=== PATIENT | female | born 2000 | race Caucasian/White ===

== ENCOUNTER 2024-09-22 13:18 | Observation (INO) | payer OTHER, SELFPAY ==
[2024-09-22] VITALS (18 sets, daily range): BP systolic 106–126; BP diastolic 56–80; PULSE 68–96; RESP 14–20; TEMP 36.8–37.1; O2SAT 80–100; BMI 23.6; BMI 23.7
[2024-09-22 14:05] LABS: Strep A DNA Probe* NOT DETECTED (Not Detectd)
[2024-09-22 14:19] LABS: PCR FLU A Negative PCR FLU A (Negative); PCR FLU B Negative PCR FLU B (Negative); PCR RSV Negative PCR RSV (Negative); SARS PCR* Negative SARS-CoV-2 (Negative)
--- NOTE | 2024-09-22 14:31 | ED_ITS ---
HPI - General Adult General Time Seen by Provider: 14:31 Date Seen: 09/22/24 Chief complaint: Sore Throat Stated complaint: Sore throat, headache Time Seen by Provider: 09/22/24 13:42 Source: patient and RN notes reviewed Mode of arrival: ambulatory Limitations: no limitations History of Present Illness HPI narrative: Even very pleasant 23-year-old trans female to male, otherwise healthy who comes to the emergency room with mom for evaluation regarding fever headache and right-sided sore throat. Chandan initially had sore throat on the left side last weekend or 1 week ago. At that time no obvious source of infection was noted as strep was negative as was urinalysis and triple swab. Treated with doxycycline for 7 days for non strep bacterial pharyngitis. Chandan and mom notes that things actually improved and last dose of antibiotic was on MondaySeptember 20. Yesterday symptoms return but this time on the right side. Since that time he then also complains of a right-sided headache neck pain. Does endorse posterior cervical lymphadenopathy. No vomiting. Did have vomiting and diarrhea last weekend. Fever did return today difficulty with swallowing because of pain on the right side. No unusual cough, dysuria. Triple swab and strep taken in triage. Related Data Home Medications ?Medication ?Instructions ?Recorded ?Confirmed bupropion HCl 100 mg tablet 120 mg PO BID 09/14/24 09/22/24 citalopram 40 mg tablet 40 mg PO QDAY 09/14/24 09/22/24 lisdexamfetamine 40 mg capsule 40 mg PO DAILY 09/14/24 09/22/24 (Vyvanse) Allergies Allergy/AdvReac Type Severity Reaction Status Date / Time mint Allergy Intermediate Verified 09/22/24 14:56 latex Allergy Mild Verified 09/22/24 14:56 Review of Systems Status of ROS: Reports: 10 or more systems reviewed and unremarkable except as noted in History and below PFSH [facility] Social History Smoking Status: Never smoker Do you use any of these nicotine containing products: Vaping Products How often do you have a drink containing alcohol: monthly or less AUDIT-C Alcohol total score: 1 Non-prescribed substance use: marijuana (any form) Exam Narrative: Exam Narrative: Alert and oriented. Nontoxic but fatigued in appearance. Eyes are clear, TMs bilaterally without erythema or fluid. Oral cavity shows slightly increased erythema in the soft palate, increased right tonsillar size compared to left. Airway is patent. I do not palpate any posterior lymphadenopathy. Positive for right anterior cervical lymphadenopathy. Neck movement is full and there are no meningeal signs. Heart with a regular rate and rhythm and lungs are clear. Abdomen soft nontender. No obvious rashes. Moving all extremities. Const: Vital Signs, click to edit/add: Vital Signs - 24 hr 09/22/24 13:32 Temperature 98.8 F Pulse Rate [Pulse Oximeter] 96 Respiratory Rate 20 Blood Pressure [Ri ght Upper Arm] 126/80 Pulse Oximetry 96 Oxygen Delivery Me thod Room Air Documenting provider has reviewed patient's vital signs: yes Course Course ED Course: Differential diagnosis includes but is not limited to peritonsillar abscess, mono, non strep bacterial pharyngitis. At this time will do a throat culture, CBC, comprehensive, mono, CRP, soft tissue neck CT. Will place IV give 1 L of fluids and Toradol 15 mg IV. Reevaluation(s) Reevaluation #1: Feeling improved after Toradol and fluids. Consultations Consultation #1: I had the pleasure of discussing this patient with ENT consult and Dr. Araujo. At this time given elevated white count, prolonged course does agree with IV Unasyn and suggests also IV steroids. 10 mg of dexamethasone ordered. Vital Signs Vital signs: Initial Vital Signs Temperature 98.8 F 09/22/24 13:32 Temperature Source Temporal Artery Scan 09/22/24 13:32 Pulse Rate 96 09/22/24 13:32 Respiratory Rate 20 09/22/24 13:32 Blood Pressure 126/80 09/22/24 13:32 Blood Pressure Mean 95 09/22/24 13:32 Pulse Oximetry 96 09/22/24 13:32 Oxygen Delivery Method Room Air 09/22/24 13:32 Vital Signs Temperature 98.8 F 09/22/24 13:32 Pulse Rate 96 09/22/24 13:32 Respiratory Rate 20 09/22/24 13:32 Blood Pressure 126/80 09/22/24 13:32 Pulse Oximetry 96 09/22/24 13:32 Oxygen Delivery Method Room Air 09/22/24 13:32 Temperature 98.8 F 09/22/24 13:32 Pulse Rate 96 09/22/24 13:32 Respiratory Rate 20 09/22/24 13:32 Blood Pressure 126/80 09/22/24 13:32 Pulse Oximetry 96 09/22/24 13:32 Oxygen Delivery Method Room Air 09/22/24 13:32 Medications Administered Medications: Discontinued Medications Generic Name Dose Route Start Last Admin Trade Name Freq PRN Reason Stop Dose Admin Sodium Chloride 1,000 mls @ 1,000 mls/hr 09/22/24 14:42 09/22/24 15:13 0.9 % Sodium Chloride 1000 Ml IV 09/22/24 15:41 1,000 mls/hr .Q1H LANDON Administration Ketorolac Tromethamine 15 mg 09/22/24 14:42 09/22/24 15:13 Ketorolac 15 Mg/Ml Inj IVP 09/22/24 14:43 15 mg ONCE ONE Administration Medical Decision Making MDM Narrative Medical decision making narrative: 1. Tonsillitis-patient with a negative strep, negative [place]ab[place] [address] and recent treatment with doxycycline admitted to [facility] for IV antibiotics and IV steroids. Patient treated with Unasyn after reassuring CT with no evidence of abscess. Also treated with IV dexamethasone. 2. Disposition-transfer of care to hospitalist Dr. Bailey for further evaluation on the medical-surgical floor. Medical Records Medical records reviewed: Yes I reviewed the patient's medical records Lab Data Lab results reviewed: Yes I reviewed the patient's lab results Labs: Lab Results 09/22/24 09/22/24 Range/Units 13:30 14:50 WBC 17.00 H (4.50-11.00) K/uL RBC 4.61 (4.00-5.20) m/uL Hgb 14.5 (12.0-16.0) gm/dL Hct 44.2 (33.0-51.0) % MCV 96 (80-100) fL MCH 32 (26-34) pg MCHC 33 (32-36) gm/dL RDW Coeff of Reji 12.2 (11.5-15.5) % Plt Count 289 (140-440) K/uL Neut % (Auto) 76.8 H (42.0-72.0) % Lymph % (Auto) 13.4 L (20-44) % Weber % (Auto) 8.1 (0.0-11.0) % Eos % (Auto) 0.4 (0.0-7.0) % Baso % (Auto) 0.2 (0.0-3.0) % Neut # (Auto) 13.10 H (1.7-7.0) K/uL Lymph # (Auto) 2.30 (0.90-2.90) K/uL Weber # (Auto) 1.40 H (0.00-0.90) K/UL Eos # (Auto) 0.10 (0.00-0.50) K/uL Baso # (Auto) 0.00 (0.00-0.30) K/uL Abs Immat Gran (auto) 0.20 (0.00-0.30) K/uL Imm/Tot Granulo (auto) 1.1 % Sodium 141 (135-149) mmol/L Potassium 4.1 (3.6-5.1) mmol/L Chloride 106 (96-114) mmol/L Carbon Dioxide 31 (20-32) mmol/L Anion Gap 4 L (7-15) mEq/L BUN 12 (5-24) mg/dL Creatinine 0.7 (0.5-1.5) mg/dL Estimated Creat Clear 118.01 Estimated GFR 125 ml/min Glucose 84 (60-115) mg/dL Calcium 9.5 (8.4-10.6) mg/dL Total Bilirubin 1.0 (0.1-1.5) mg/dL AST 20 (12-35) U/L ALT 16 (4-35) U/L Alkaline Phosphatase 58 (40-150) U/L C-Reactive Protein 2.3 H (0.5-1.0) mg/dL Total Protein 7.5 (6.0-8.3) g/dL Albumin 4.5 (3.3-5.0) g/dL SARS-CoV-2 (PCR) Negative SARS-CoV-2 (Negative) Monoscreen Negative (Negative) Influenza Type A (PCR) Negative PCR FLU A (Negative) Influenza Type B (PCR) Negative PCR FLU B (Negative) RSV (PCR) Negative PCR RSV (Negative) Group A Strep DNA NOT DETECTED (Not Detectd) Imaging Data Soft tissue neck CT: Attestation: I have reviewed the pertinent imaging results. Radiologist's impression: Visualized lung apices are clear. Normal thyroid gland. Normal salivary glands. Normal orbits. Preservation of the normal fatty attenuation within the bilateral parapharyngeal space. Patent appearance of the visualized aerodigestive tract. Borderline enlarged 1 centimeter right level 2 cervical lymph node (3/38). Prominent, but nonenlarged bilateral level 2 nodes. Prominent and striated appearance of the joegu-hagkfef-jspl-left palatine tonsil without a discrete detectable abscess. Clear paranasal sinuses. Clear mastoid air cells. IMPRESSION: 1. Prominent and striated appearance of the kvfbh-oijuumy-kshv-left palatine tonsil compatible with tonsillitis in the appropriate clinical setting. No associated discrete abscess is detected. 2. Borderline enlarged 1 centimeter right level 2 cervical lymph node. Prominent, but nonenlarged bilateral level 2 nodes. Discharge Plan Discharge Clinical Impression: Acute tonsillitis Patient Disposition: Admitted As Observation Condition: Improved
--- NOTE | 2024-09-22 14:42 | CRLHL7_ITS ---
For Patients: As a result of the Century Cures Act, medical imaging exams and procedure reports are released immediately into your electronic medical record. You may view this report before your referring provider. If you have questions, please contact your health care provider. INDICATION: Right-sided tonsillar swelling COMPARISON: None. TECHNIQUE: CT of the neck with intravenous contrast (71 mL Isovue 370). FINDINGS: Visualized lung apices are clear. Normal thyroid gland. Normal salivary glands. Normal orbits. Preservation of the normal fatty attenuation within the bilateral parapharyngeal space. Patent appearance of the visualized aerodigestive tract. Borderline enlarged 1 centimeter right level 2 cervical lymph node (3/38). Prominent, but nonenlarged bilateral level 2 nodes. Prominent and striated appearance of the fgjtq-ngqgeeo-brup-left palatine tonsil without a discrete detectable abscess. Clear paranasal sinuses. Clear mastoid air cells. IMPRESSION: 1. Prominent and striated appearance of the idrgf-wwwdpko-vekz-left palatine tonsil compatible with tonsillitis in the appropriate clinical setting. No associated discrete abscess is detected. 2. Borderline enlarged 1 centimeter right level 2 cervical lymph node. Prominent, but nonenlarged bilateral level 2 nodes. Please note that all CT scans at this facility use dose modulation, iterative reconstruction, and/or weight-based dosing when appropriate to reduce radiation dose to as low as reasonably achievable. Dictated by Armando Valentin MD @ 09/22/2024 4:11:03 PM (Electronically Signed)
[2024-09-22 15:05] LABS: Basophils Percent Auto 0.2 % (0.0-3.0); Eosinophils Percent Auto 0.4 % (0.0-7.0); Hematocrit 44.2 % (33.0-51.0); Hemoglobin* 14.5 gm/dL (12.0-16.0); Immature Granulocytes Pct Auto 1.1 %; Lymphocytes Percent Auto 13.4 % (20-44); Mean Corpuscular HGB Conc 33 gm/dL (32-36); Mean Corpuscular Hemoglobin 32 pg (26-34); Mean Corpuscular Volume 96 fL (80-100); Monocytes Percent Auto 8.1 % (0.0-11.0); Neutrophils Percent Auto 76.8 % (42.0-72.0); Platelet Count* 289 K/uL (140-440); RDW Coefficient of Variation % 12.2 % (11.5-15.5); Red Blood Count 4.61 m/uL (4.00-5.20)
[2024-09-22 15:07] LABS: Slide Review Reflex No
[2024-09-22] MEDS: 0.9 % SODIUM CHLORIDE 1000 ml 1,000 ML IV (15:13)
[2024-09-22] MEDS: KETOROLAC 15 MG/ML inj IVP (15:13)
[2024-09-22 15:15] LABS: Mono Screen* Negative (Negative)
[2024-09-22 15:25] LABS: Albumin* 4.5 g/dL (3.3-5.0); Chloride* 106 mmol/L (96-114); Potassium* 4.1 mmol/L (3.6-5.1); Sodium* 141 mmol/L (135-149)
[2024-09-22 15:27] LABS: Blood Urea Nitrogen* 12 mg/dL (5-24); Creatinine* 0.7 mg/dL (0.5-1.5); Est. Creatinine Clearance* 118.01; Estimated Glomerular Filt Rate 125 ml/min
[2024-09-22 15:28] LABS: Alanine Aminotransferase* 16 U/L (4-35); Alkaline Phosphatase* 58 U/L (40-150); Anion Gap 4 mEq/L (7-15); Aspartate Amino Transferase* 20 U/L (12-35); Carbon Dioxide* 31 mmol/L (20-32); Total Protein* 7.5 g/dL (6.0-8.3)
[2024-09-22 15:29] LABS: Calcium* 9.5 mg/dL (8.4-10.6); Glucose* 84 mg/dL (60-115)
[2024-09-22 15:31] LABS: C Reactive Protein* 2.3 mg/dL (0.5-1.0)
[2024-09-22] MEDS: DEXAMETHASONE 10 MG/ML PF IVP (16:33)
[2024-09-22] MEDS: AMPICILLIN/SULBACTAM 3 GM in 0.9 % SODIUM CHLORIDE Mini-bag 100 ML IVPB ×2 (16:33→22:34)
--- NOTE | 2024-09-22 17:32 | PM.IMHP1 ---
Assessment and Plan Assessment and plan (1) Acute tonsillitis: Status: Acute Plan 23-year-old male who has failed outpatient treatment for tonsillitis. Will admit for ampicillin sulbactam. Most likely I expect he will improve overnight and can be discharged tomorrow on Augmentin. Total Time Spent Total Time Spent: Total time spent is 60 minutes in reviewing outside records, coordination of care, discussing with patient and other providers ongoing management. Hospitalist- H&P: HPI History of Present Illness Date Seen: 09/22/24 Chief complaint: Sore throat, headache Narrative: Chandan (formerly Carla) Sarina Le is a 23 year old female to male transgender person with a 9 day history of sore throat. On September 13 he began to have left-sided sore throat. Also at that time had a fever. Seen in urgent care on September 14. At that time had negative testing for strep A, influenza, COVID and RSV, all negative. Treated with doxycycline. He is taking the doxycycline for the past week. The left sided throat pain has resolved but during that time he developed increasing right-sided throat pain. He is having pain with swallowing. No trouble breathing. He has been able to eat and drink. No significant previous history of pharyngitis or tonsillitis. No other symptoms of illness. Review of Systems Narrative: Reports no other health concerns except as noted above [facility] Medical History (Updated 09/22/24 @ 17:39 by Gurpreet Bailey MD) Gender dysphoria in adult ?F64.0 - Transsexualism (ICD-10) ADD (attention deficit disorder) ?F98.8 - Other specified behavioral and emotional disorders with onset usually occurring in childhood and adolescence (ICD-10) Depression ?F32.A - Depression, unspecified (ICD-10) Anxiety ?F41.9 - Anxiety disorder, unspecified (ICD-10) Surgical History (Updated 09/22/24 @ 17:40 by Gurpreet Bailey MD) H/O wisdom tooth extraction ?K08.409 - Partial loss of teeth, unspecified cause, unspecified class (ICD-10) Family History (Updated 09/22/24 @ 17:40 by Gurpreet Bailey MD) Grandfather Prostate cancer Social History (Updated 09/22/24 @ 17:41 by Gurpreet Bailey MD) Narrative: He is a [employer] student. He has 1 year left at [place]. Originally from [facility]. He smokes cannabis couple times a day. He vapes nicotine once a day. Rarely drinks alcohol. Smoking Status: Never smoker Do you use any of these nicotine containing products: Vaping Products How often do you have a drink containing alcohol: monthly or less AUDIT-C Alcohol total score: 1 Non-prescribed substance use: marijuana (any form) Meds Home Medications and Allergies Home Medications ?Medication ?Instructions ?Recorded ?Confirmed ?Type bupropion HCl 100 mg tablet 120 mg PO BID 09/14/24 09/22/24 History citalopram 40 mg tablet 40 mg PO QDAY 09/14/24 09/22/24 History lisdexamfetamine 40 mg capsule 40 mg PO DAILY 09/14/24 09/22/24 History (Vyvanse) Home Medication Comments: Bupropion XL 150 mg daily Allergies Allergy/AdvReac Type Severity Reaction Status Date / Time mint Allergy Intermediate Verified 09/22/24 14:56 latex Allergy Mild Verified 09/22/24 14:56 Exam Narrative: Exam Narrative: He is alert pleasant and appears in no distress. Eyes normal. Oropharynx with erythema. No trismus. No exudate. No marked tonsillar swelling. No stridor. Palpation over his neck shows no marked adenopathy. Mild tenderness on the right in the anterior cervical nodes. Neck is otherwise supple without tenderness. Respirations are clear to auscultation. Cardiovascular: S1, S2, regular rate and rhythm. Abdomen: Bowel sounds active. Abdomen is soft without hepatomegaly or splenomegaly. No tenderness. Extremities with good perfusion, good pulses, warm to touch. No rash Const: Vital Signs, click to edit/add: Vital Signs - 24 hr 09/22/24 13:32 Temperature 98.8 F Pulse Rate [Pulse Oximeter] 96 Respiratory Rate 20 Blood Pressure [Ri ght Upper Arm] 126/80 Pulse Oximetry 96 Oxygen Delivery Me thod Room Air Documenting provider has reviewed patient's vital signs: yes Hospitalist - H&P: Result Labs Labs: Short CBC 09/22/24 Range/Units 14:50 WBC 17.00 H (4.50-11.00) K/uL Hgb 14.5 (12.0-16.0) gm/dL Hct 44.2 (33.0-51.0) % Plt Count 289 (140-440) K/uL BMP 09/22/24 14:50 Sodium 141 Potassium 4.1 Chloride 106 Carbon Dioxide 31 BUN 12 Creatinine 0.7 Glucose 84 Calcium 9.5 Liver Function 09/22/24 Range/Units 14:50 Total Bilirubin 1.0 (0.1-1.5) mg/dL AST 20 (12-35) U/L ALT 16 (4-35) U/L Alkaline Phosphatase 58 (40-150) U/L Albumin 4.5 (3.3-5.0) g/dL Imaging CT soft tissue neck: Radiologist's impression: INDICATION: Right-sided tonsillar swelling COMPARISON: None. TECHNIQUE: CT of the neck with intravenous contrast (71 mL Isovue 370). FINDINGS: Visualized lung apices are clear. Normal thyroid gland. Normal salivary glands. Normal orbits. Preservation of the normal fatty attenuation within the bilateral parapharyngeal space. Patent appearance of the visualized aerodigestive tract. Borderline enlarged 1 centimeter right level 2 cervical lymph node (3/38). Prominent, but nonenlarged bilateral level 2 nodes. Prominent and striated appearance of the puaum-mxqvroj-bnhp-left palatine tonsil without a discrete detectable abscess. Clear paranasal sinuses. Clear mastoid air cells. IMPRESSION: 1. Prominent and striated appearance of the icsxt-qxzljks-tdbl-left palatine tonsil compatible with tonsillitis in the appropriate clinical setting. No associated discrete abscess is detected. 2. Borderline enlarged 1 centimeter right level 2 cervical lymph node. Prominent, but nonenlarged bilateral level 2 nodes.
--- OUTSIDE RECORDS SUMMARY | 2024-09-22 17:48 | XMS_ITS | Clinical Summary ---
Author Organization [facility] Address [facility] [place] [address] Care Team Providers Care Coal Picker Name Role Phone Ashley Ashraf MD Primary Care Provider Allergies Active Allergy Reactions Criticality Noted Date Comments Latex Itching 06/05/2019 Capsaicin-Menthol Cough,Dyspnea,Headac he, Itching 01/23/2020 Mint Throat Swelling/Closing High 01/07/2020 Peppermint Oil Itching High 01/07/2020 Other reaction(s): Throat Swelling/Closing Medications polyethylene glycol (MIRALAX) 17 g powder for solution Take by mouth. 0 12/16/19 18 Active ketoconazole 2% shampoo (NIZORAL) 2 % shampooIndicatio ns:Tinea versicolor Shampoo the skin thoroughly each day-- keep on for 5 minutes, then rinse in shower daily until resolved. 120 mL 2 06/15/19 23 Active triamcinolone 0.1 % ointmentIndicati ons:Hand eczema Apply topically to affected area(s) two times daily. 80 g 05/12/19 24 Active hydrocortisone 1 % ointmentIndicati ons:Eczema of eyelid, unspecified laterality Apply topically to affected area(s) two times daily. 57 g 05/12/19 24 Active naloxone (NARCAN) 4 mg/actuation nasal spray Inhale 1 [place] into affected nostril(s) each time if needed for Patient Diff To Arouse. 07/04/19 24 Active naproxen (NAPROSYN) 500 mg tabletIndication s:Breakthrough bleeding on Nexplanon Use 500 mg twice daily for 3-4 days when having genital bleeding. 90 Tablet 11/23/19 24 Active Vyvanse 40 mg capsuleIndicatio ns:Attention deficit disorder, unspecified hyperactivity presence TAKE ONE CAPSULE BY MOUTH ONE TIME DAILY 30 Capsule 11/24/19 24 Active lisdexamfetamine (Vyvanse) 40 mg capsuleIndicatio ns:Attention deficit disorder, unspecified hyperactivity presence Take 1 Capsule (40 mg) by mouth once daily. 30 Capsule 02/25/20 24 Active naproxen (NAPROSYN) 500 mg tabletIndication s:Breakthrough bleeding on Nexplanon Take 1 Tablet (500 mg) by mouth two times daily. 90 Tablet 12/27/19 24 Active lisdexamfetamine (Vyvanse) 40 mg capsuleIndicatio ns:Attention deficit disorder, unspecified type Take 1 Capsule (40 mg) by mouth once daily. 30 Capsule 04/02/20 24 Active buPROPion (WELLBUTRIN XL) 150 mg Extended-Release tabletIndication s:Depression with anxiety Take 1 Tablet (150 mg) by mouth once daily. 90 Tablet 1 06/28/19 25 Active citalopram (CELEXA) 40 mg tabletIndication s:Depression with anxiety Take 1 Tablet (40 mg) by mouth once daily in the morning. 90 Tablet 3 06/28/19 25 Active triamcinolone 0.1 % lotionIndication s:Hand eczema Apply topically to affected area(s) three times daily. 60 mL 06/28/19 25 Active EPINEPHrine (EPIPEN) 0.3 mg/0.3 mL auto-injectorInd ications:Classic IgE mediated food allergy Inject into the lateral thigh as needed for life threatening allergic reactions. 6 Each 3 06/28/19 25 Active methylphenidate HCl (Ritalin) 10 mg tabletIndication s:Attention deficit disorder, unspecified type 10 mg daily as needed for afternoon/even ing homework/class es. 30 Tablet 06/28/19 25 Active lisdexamfetamine 40 mg capsuleIndicatio ns:Attention deficit disorder TAKE ONE CAPSULE BY MOUTH ONE TIME DAILY 30 Capsule 09/07/19 25 Active lisdexamfetamine (Vyvanse) 40 mg capsuleIndicatio ns:Attention deficit disorder Take 1 Capsule (40 mg) by mouth once daily. 30 Capsule 10/07/19 25 2024 Active lisdexamfetamine (Vyvanse) 40 mg capsuleIndicatio ns:Attention deficit disorder Take 1 Capsule (40 mg) by mouth once daily. 30 Capsule 11/06/19 25 Active lisdexamfetamine (VYVANSE) 40 mg capsuleIndicatio ns:Attention deficit disorder Take 1 Capsule (40 mg) by mouth once daily. 30 Capsule 08/07/19 25 2024 Discontinued Hospital, Clinic, or Other Facility Administered Medication Ordered Dose Route Frequency Start Date End Date Status etonogestrel subdermal implant (NEXPLANON) 1 EachIndications:Nexplanon insertion 1 Each Sdrm Q 3 YEARS 06/03/2021 Active Active Problems Problem Noted Date Diagnosed Date Pap smear for cervical cancer screening 06/26/19 24 Overview (06/26/2023): 06/2023 NIL Plan: Pap due in 3 years Gender dysphoria in adult 10/11/2022 Hypercholesterolemia 04/06/2020 Gender dysphoria in adolescent and adult 020 Depression with anxiety 02/25/2020 Generalized anxiety disorder 12/15/2017 Dboukg-yr-xzme transgender person 01/27/2017 Overview (06/04/2018): Continuous OCPs started 01/22 to stop menses. Moodiness with Apri. GI intolerance to Ortho Evra Patch. Depo Provera started March 2018. Constipation 01/11/2013 Dyslexia 05/04/2009 ADD (attention deficit disorder) 05/04/2009 Other atopic dermatitis and related conditions 0 11/26/2007 Encounters Date Type Department Care Team Description 09/05/2024 Refill [facility] [address] [facility] [place] [address] Ashley Ashraf MD Refill Request (Lisdexamfetamine) 06/28/2024 10:25 AM SUPERVISOR MAPPING Office Visit [facility] [address] [place] [address] Ashley Ashraf MD Medication Management 06/28/2024 Travel from Last 3 Months Immunizations Immunization Administration Dates Next Due COVID-19 vaccine (Huodongxing-Bio NTech 30mcg/0.3mL) PF, MDV 03/25/2021 DTaP 05/05/2008,07/10/2003 EYrC-PcdY-NAT (Pediarix) 04/21/2003,01/01/2003,0 10/03/2002 HIB PRP-OMP (PedvaxHIB) 04/21/2003,01/01/2003, Hepatitis A (Peds) 01/19/2018, 7,08/13/2015(Defer red: Patient Refused) Human Papilloma Virus Vaccine 04/07/2013, 013 INFLUENZA, IIV3 PF (AGE >= 6 MO) 02/01/2024 Inactivated Polio Vaccine 05/05/2008 Influenza, IIV3 (Age 6-35 mos) 05/23/2012 Influenza, IIV3 (Age >=3 years) 01/29/2009 Influenza, IIV4 01/21/2022, 1,01/07/2020,02/22,01/19/2018,01/27/2017 Influenza,CCIIV4 PRESERV FREE 04/24/2023 Influenza,LAIV3 Live Intrana kush (Flumist) 03/02/2011,03/23/2010 Influenza,LAIV4 Live Intrana kush (Flumist) 01/11/2013,03/02/2011,03/23/2010 MENINGOCOCCAL VACCINE 2 VIAL 2MO-55YO (MENVEO) 01/19/2018,06/24/2014 MMR 05/05/2008,07/10/2003 Pneumococcal Poly,23-Valent (Pneumovax) 03/25/2021 Tdap 06/28/2024,06/24/2014 Varicella Vaccine 05/05/2008,07/10/2003 Family History Medical History Relation Name Comments Other Mother scoliosis Relation Name Status Comments Mother Social History Tobacco Use Types Packs/Day Years Used Date Smoking Tobacco: Never Smokeless Tobacco: Never Tobacco Cessation:Counseling Given: Yes Comments:occ Alcohol Use Standard Drinks/Week Comments Yes 0 (1 standard drink = 0.6 oz pur e alcohol) 1 drink per month PHQ-2 Answer Date Recorded PHQ-2 TOTAL SCORE 2 06/28/2024 Social Connections Answer Date Recorded Do you often feel lonely or isolated from those around you? 0 06/28/2024 Financial Resource Strain Answer Date R ecorded Difficulty of Paying Living Expenses 3 06/28/2024 Difficulty of Paying Living Expenses Not on file 06/28/2024 Food Insecurity Answer Date Recorded Do you worry your food will run out before you are able to buy more? 1 06/28/2024 Transportation Needs Answer Date Record ed Does lack of transportation keep you from medica l appointments? 1 06/28/2024 Does lack of transportation keep you from work, meetings or getting things that you need? 1 06/28/2024 Housing Stability Answer Date Recorded What is your housing situation today? 1 06/28/2024 Utilities Answer Date Recorded Do you have trouble paying f or utilities (for example, heat, electricity, water, phone)? 1 06/28/2024 Comments No Sex and Gender Information Value Date Recorded Sex Assigned at Female 05/30/2021 8:17 PM SUPERVISOR MAPPING Legal Sex Female 5:46 AM SUPERVISOR MAPPING Gender Identity Transgender Male 05/18/2020 9:40 AM SUPERVISOR MAPPING Sexual Orientation Bisexual 11/19/2020 11 :37 AM CDT Obstetrics History Last Filed Vital Signs Vital Sign Reading Time Taken Comments Blood Pressure 131/70 06/28/2024 10:35 AM SUPERVISOR MAPPING Pulse 99 06/28/2024 10:35 AM SUPERVISOR MAPPING Temperature 37.2 C (99 F) 03/25/2022 9:51 AM SUPERVISOR MAPPING Respiratory Rate 16 10/23/2020 10:27 AM CDT Oxygen Saturation 99% 06/28/2024 10:35 AM SUPERVISOR MAPPING Inhaled Oxygen Concentration - - Weight 67.7 kg (149 lb 3.2 oz) 06/28/2024 10:35 AM SUPERVISOR MAPPING Height 167.4 cm (5' 5.91) 07/14/2023 2:51 PM CS T Body Mass Index 24.15 07/14/2023 2:51 PM SUPERVISOR MAPPING Plan of Treatment Upcoming Encounters Date Type Department Care Team (Late st Contact Info) Description 09/26/2024 1:35 PM CDT Office Visit [facility] [address] [place] [address] Ashley Ashraf MD [address] [place] [address] Health Maintenance Due Date Last Done Comments BMI (ht and wt on same day) for age 18+ 07/13/2024 07/14/2023, 06/20/2023, 05/12/2023, Additional history exists Chlamydia for age 16-24 01/31/2025 02/01/20 24, 06/20/2023, 07/22/2022, Additional history exists Depression screening for age 12+ 06/28/2025 06/28/2024 Pap test for age 21-65 06/20/2026 06/20/2023 Tetanus booster 06/28/2034 06/28/2024, 06/24/2014 HPV series for age 9-26 Completed 04/07/2013, 05/23 HPV series for age 9-26 Completed 04/07/2013, 05/23 Pneumococcal series for age 6-49 Aged Out 03/25/2021 No longer eligible based on patient's age to complete this topic COVID-19 vaccine series Completed 01/06/20 24, 04/24/2023, 03/25/2021, Additional history exists HIV for age 15-65 Completed 02/01/2024, , 06/15/2022, Additional history exists Hepatitis C screening for age 18-79 Completed 02/01/2024, 06/20/2023, 06/15/2022, Additional history exists Influenza Vaccine Completed 02/01/2024, , 01/21/2022, Additional history exists Tdap Completed 06/28/2024, 06/24/2014 Procedures Procedure Name Priority Date/Time Associated Diagnosis Comments GC CHLAMYDIA TRACH PROBE Routine 02/01/2024 9:02 AM CDT Has multiple sexual partners Screening examination for STD (sexually transmitted disease) HIV 1/2 ANTIGEN/ANTIBODY FOURTH GENERATION W/RFL (QUEST) Routine 02/01/2024 8:54 AM CDT Has multiple sexual partners Screening examination for STD (sexually transmitted disease) ANTI HCV Routine 02/01/2024 8:54 AM CDT Has multiple sexual partners Screening examination for STD (sexually transmitted disease) BUSHING PRESS OPERATOR THIN PREP PAP SCREEN IMAGED Routine 06/20/2023 10:19 AM SUPERVISOR MAPPING Screening for cervical cancer from Last 3 Months or Most Recently Relevant to Health Maintenance Results * GC CHLAMYDIA TRACH PROBE (02/01/2024 9:02 AM CDT) Pathologist [facility] CHLAMYDIA TRACHOMATIS RNA, TMA, UROGENITAL NOT DETECTED NOT DETECTED [facility] NEISSERIA GONORRHOEAE RNA, TMA, UROGENITAL NOT DETECTED NOT DETECTED [facility] COMMENT [facility] Comment: The analytical performance characteristics of this assay, when used to test SurePath(TM) specimens have been determined by [employer]. The modifications have not been cleared or approved by the FDA. This assay has been validated pursuant to the CLIA regulations and is used for clinical purposes. For additional information, please refer to https://education.[employer]/faq/UCC557 (This link is being provided for information/ educational purposes only.) Other URINE SPECIMEN / Unknown 02/01/2024 9:02 AM CDT 02/01/2024 9:02 AM CDT sAhley Ashraf MD MICROBIOLOGY Final Resul t [facility] [address] [place] [address], [employer] [address] * HIV 1/2 ANTIGEN/ANTIBODY FOURTH GENERATION W/RFL (QUEST) [[id number]] (02/01/2024 8:54 AM CDT) Pathologist [facility] HIV AG/AB, 4TH GEN NON-REACT LISA NON-REACT LISA [facility] Comment: HIV-1 antigen and HIV-1/HIV-2 antibodies were not detected. There is no laboratory evidence of HIV infection. PLEASE NOTE: This information has been disclosed to you from records whose confidentiality may be protected by state law. If your state requires such protection, then the state law prohibits you from making any further disclosure of the information without the specific written consent of the person to whom it pertains, or as otherwise permitted by law. A general authorization for the release of medical or other information is NOT sufficient for this purpose. For additional information please refer to http://[employer]/faq/SWL232 (This link is being provided for informational/ educational purposes only.) The performance of this assay has not been clinically validated in patients less than 2 years old. Blood BLOOD SPECIMEN / Unknown 02/01/2024 8:54 AM CDT 02/01/2024 8:54 AM CDT Ashley Ashraf MD SEND OUTS Final Resul t Performing Organization Address [facility] de Phone Number [employer] [address] [address], [facility] [address] [place] [address] * ANTI HCV (02/01/2024 8:54 AM CDT) HEPATITIS C ANTIBODY NON-REACTI VE NON-REACT LISA [employer] Comment: HCV antibody was non-reactive. There is no laboratory evidence of HCV infection. In most cases, no further action is required. However, if recent HCV exposure is suspected, a test for HCV RNA (test code 59411) is suggested. For additional information please refer to http://[employer].Patient Communicator.Archive/faq/EUX04e0 (This link is being provided for informational/ educational purposes only.) Blood BLOOD SPECIMEN / Unknown 02/01/2024 8:54 AM CDT 02/01/2024 8:54 AM CDT Ashley Ashraf MD SEND OUTS Final Resul t Performing Organization Address [facility] Co de Phone Number [employer] [address] [place] [address], [facility] [address] [facility] [place] [address] * BUSHING PRESS OPERATOR THIN PREP PAP SCREEN IMAGED [[id number]] (06/20/2023 10:19 AM SUPERVISOR MAPPING) Case Report Gynecologic Cytology Report Case: [id number] Authorizing Provider: Ashley Ashraf MD Collected: 06/20/2023 1019 Ordering Location: [facility] Received: 06/20/2023 1033 Clinic First Screen: Meredith Lawton Specimen: BUSHING PRESS OPERATOR ThinPrep Vial Screening, Cervical 06/26/2023 1:59 PM SUPERVISOR MAPPING [facility] [employer] [facility] INTERPRETATION/ RESULT NEGATIVE FOR INTRAEPITHELIAL LESION OR MALIGNANCY (NIL) (none) 06/26/2023 1:59 PM SUPERVISOR MAPPING [facility] ENTRAL LABORATORY at [address] SUPERVISOR MAPPING SPECIMEN ADEQUACY Satisfactory for evaluation Endocervical component present 06/26/2023 1:59 PM SUPERVISOR MAPPING [facility] [employer] [facility] Date of LMP 05/22/2023 06/26/2023 1:59 PM SUPERVISOR MAPPING [facility] EN[facility]AL LAB[facility] Last Pap Date first pap 06/26/2023 1:59 PM SUPERVISOR MAPPING [facility] EN[facility]AL LAB[facility] Last Pap Result First Pap/Unknown 1:59 PM SUPERVISOR MAPPING [facility] ENTRAL LAB[facility]ORY Abnormal Pap or [place] Bx in last 5 years No 06/26/2023 1:59 PM SUPERVISOR MAPPING [facility] [facility] Menstrual Status Hormonally Suppressed 06/26/2023 1:59 PM SUPERVISOR MAPPING [facility] ENTRAL LABOR[facility]ORY Upton Bx Done Today No 06/26/2023 1:59 PM SUPERVISOR MAPPING [facility] EN[facility]AL LAB[facility] Additional Information None given 06/26/2023 1:59 PM SUPERVISOR MAPPING [facility] EN[facility]ORY Comment: Cytology is screened at [facility], Central Laboratory - [address], [place] [address] and [facility] Laboratory - [address], [place] [address] and [facility] - [address] [place] [address] Interpreted at [facility] Central Laboratory - [address], [place] [address] Automated Review Successful 06/26/2023 1:59 PM SUPERVISOR MAPPING [facility] ENTRAL [facility] Comment:Specimen processed s uccessfully by automated cesspool cleaner device, ThinPrep Imaging System, [employer] Note The pap test is a screening technique, not a diagnostic procedure. It is used primarily to screen for squamous cancers and precursor lesions. Published studies have shown that it is subject to both false negative and false positive results. The pap test should not be used as the sole means to diagnose or exclude pre-malignant and malignant lesions. 06/26/2023 1:59 PM SUPERVISOR MAPPING [facility]- ENTRAL LABORATORY Other (Cervical) Non-Blood / Unknown 06/20/2023 10:19 AM SUPERVISOR MAPPING 06/20/2023 10:33 AM SUPERVISOR MAPPING us Ashley Ashraf MD PATHOLOGY/CYTOLOGY Final Re sult [facility] [address] [place] [address], [place] from Last 3 Months or Most Recently Relevant to Health Maintenance Insurance [facility] Care Teams Coal Picker Relationship Specialty Start Date End Date Ashley Ashraf MD [address] [place] [address] PCP - General Family Practice 04/23/21
--- OUTSIDE RECORDS SUMMARY | 2024-09-22 17:48 | XMS_ITS | Encounter Summary ---
Author Organization [address] Address [address] [place] [address] Care Team Providers Care Public Works Inspector Name Role Phone Kelsie Barba MD Primary Care Provider [phone] Lyndsey Raines MD Unavailable [phone] Mildred White Unavailable Unavailable Jens Wharton [facility] Unavailable [phone] Paras Dunne MD Unavailable [phone] Lyndsey Raines MD Unavailable [phone] Encounter Details Date Type Department Care Team (Late st Contact Info) Description 01/23/2023 [facility] [address] [place] [address] Glory Foster RN Social History Tobacco Use Types Packs/Day Years Used Date Smoking Tobacco: Never Smokeless Tobacco: Never Alcohol Use Standard Drinks/Week Comments Yes 1 (1 standard drink = 0.6 oz pur e alcohol) Comments Unknown Sex and Gender Information Value Date Recorded Sex Assigned at Female 01/22/2020 9:50 PM CDT Legal Sex Female 4:24 AM STRADDLE BUG DRIVER Gender Identity Transgender Male 01/22/2020 9:50 PM CDT Sexual Orientation other 01/22/2020 9: 50 PM CDT documented as of this encounter Plan of Treatment Not on file documented as of this encounter Visit Diagnoses Not on filedocumented in this encounter Care Teams Public Works Inspector Relationship Specialty [place] [address] [place] [address] PCP - General 01/30/04 Lyndsey Raines MD [address] [facility] [address] [place], [place] [address] Plastic Surgery 04/20/22 Mildred White Specialty Human Services Instructor 04/20/22 Jens Wharton [facility] [address] [place] [address] Professor Of Social Work Plastic Surgery 04/20/22 Paras Dunne MD [address] [place] [address] Assigned PCP 07/02/22 05/31/23 Lyndsey Raines MD [address] [facility] [address] [place], [place] [address] Assigned Surgical Provider 10/22/22 documented as of this encounter
--- OUTSIDE RECORDS SUMMARY | 2024-09-22 17:48 | XMS_ITS | Encounter Summary ---
Author Organization [facility] Address [address] [place] [address] Care Team Providers Care Electrolog Operator Name Role Phone Kelsie Barba MD Primary Care Provider [phone] Lyndsey Raines MD Unavailable [phone] Mildred White Unavailable Unavailable Jesn Wharton [facility] Unavailable [phone] Paras Dunne MD Unavailable [phone] Lyndsey Raines MD Unavailable [phone] Encounter Details Date Type Department Care Team (Late st Contact Info) Description 10/06/2022 [facility] Medical Advice [facility] [address] [place] [address] Laurel Meeks Social History Tobacco Use Types Packs/Day Years Used Date Smoking Tobacco: Never Assessed Comments Unknown Sex and Gender Information Value Date Recorded Sex Assigned at Female 01/22/2020 9:50 PM CDT Legal Sex Female 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 Gender Identity Transgender Male 01/22/2020 9:50 PM CDT Sexual Orientation other 01/22/2020 9: 50 PM CDT documented as of this encounter Plan of Treatment Not on file documented as of this encounter Visit Diagnoses Not on filedocumented in this encounter Care Teams Electrolog Operator Relationship Specialty [place] [address] [address] [address] PCP - General 01/30/04 Lyndsey Raines MD [address] [place] [address] Plastic Surgery 04/20/22 Mildred White Specialty Blood And Plasma Laboratory Assistant 04/20/22 Jens Wharton, [facility] [address] [place] [address] Unarmed Security Guard Plastic Surgery 04/20/22 Paras Dunne MD [address] [place] [address] Assigned PCP 07/02/22 05/31/23 Lyndsey Raines MD [address] [place] [address] Assigned Surgical Provider 10/22/22 documented as of this encounter
--- OUTSIDE RECORDS SUMMARY | 2024-09-22 17:48 | XMS_ITS | Clinical Summary ---
Author Organization [facility] Address [address] [place] [address] Care Team Providers Care Cashier Self Service Gasoline Name Role Phone Kelsie Barba MD Primary Care Provider [phone] Lyndsey Raines MD Unavailable [phone] Mildred White Unavailable Unavailable Jens Wharton [facility] Unavailable [phone] Allergies Active Allergy Reactions Criticality Noted Date Comments Latex Itching,Rash Low 06/05/2019 [place]ha Cough,Difficulty breathing,Headache,Itchi ng 01/23/2020 Peppermint Oil High 01/07/2020 Other reaction(s): Throat Swelling/Closing Medications * This document contains information received from the source organization and may not represent a complete record from that organization. citalopram (CELEXA) 40 MG tablet TK 1 T PO QAM 0 Active medroxyPROGESTE Eusebio (DEPO-PROVERA) 150 MG/ML syringe Inject 150 mg into the muscle 9 Active methylphenidate (CONCERTA) 27 MG CR tablet 7 Active methylphenidate (RITALIN) 10 MG tablet 0 Active buPROPion HCl (WELLBUTRIN PO) Take 125 mg by mouth daily Active testosterone cypionate (DEPOTESTOSTERO NE) 200 MG/ML injectionIndica tions:Gender dysphoria in adolescent and adult Inject 0.25 mLs (50 mg) into the muscle once a week 2 mL 1 Active Additional Information Patient not taking.Reported on 10/11/2022 Needle, Disp, 23G X 1 MISCIndications :Gender dysphoria in adolescent and adult To use with weekly IM injection 25 each 3 1 Active Additional Information Patient not taking.Reported on 10/11/2022 syringe, disposable, 1 ML MISCIndications :Gender dysphoria in adolescent and adult To use with weekly IM injection 25 each 3 1 Active Additional Information Patient not taking.Reported on 10/11/2022 VYVANSE 30 MG capsule TAKE 1 CAPSULE BY MOUTH EVERY MORNING. 3 Active Active Problems Problem Noted Date Diagnosed Date Gender dysphoria in adolescent and adult 020 Hypercholesterolemia 04/06/2020 Generalized anxiety disorder 12/15/2017 Immunizations Immunization Administration Dates Next Due DTAP (<7y) 05/05/2008,07/10/2003 DTaP/HepB/IPV 04/21/2003,01/01/2003,10/03/2002 HIB(PRP-OMP)(PedvaxHIB) 04/21/2003,01/01/2003, HPV Quadrivalent 04/07/2013,05/23/2012 Hepatitis A (Vaqta/Havrix)(P eds 12m-18y) 01/19/2018,01/27/2017 Historic Hib Prohibit 01/01/2003,10/03/2002 Influenza (IIV3) PF 01/29/2009 Influenza (prior to 2023) 05/23/2012 Influenza Intranasal Vaccine 01/11/2013,03/02/20 11,03/23/2010 Influenza Vaccine >6 months,quad, PF 05/2019,02/22/2019,01/19/2018,01/27 MMR (MMRII) 05/05/2008,07/10/2003 Meningococcal ACWY (Menveo ) 01/19/2018,06/24/2014 Nasal Influenza Vaccine 2-49 (FluMist) 3,03/02/2011,03/23/2010 Poliovirus, inactivated (IPV) 05/05/2008 TDAP Vaccine (Adacel) 06/24/2014,06/24/2014 Varicella (Varivax) 05/05/2008,07/10/2003 Social History Tobacco Use Types Packs/Day Years Used Date Smoking Tobacco: Never Smokeless Tobacco: Never Tobacco Cessation:Counseling Given: Not Answered Alcohol Use Standard Drinks/Week Comments Yes 1 (1 standard drink = 0.6 oz pur e alcohol) Adolescent Education Answer Date Record ed Getting School Help Needed Not on file 02/09 Comments Unknown Sex and Gender Information Value Date Recorded Sex Assigned at Female 01/22/2020 9:50 PM CDT 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 Gender Identity Transgender Male 01/22/2020 9:50 PM CDT Sexual Orientation other 01/22/2020 9: 50 PM CDT Last Filed Vital Signs Vital Sign Reading Time Taken Comments Blood Pressure 116/71 10/11/2022 11:13 AM CDT Pulse 74 10/11/2022 11:13 AM CDT Temperature 36.7 C (98 F) 08/03/2020 10:47 AM CDT Respiratory Rate - - Oxygen Saturation 98% 10/11/2022 11:13 AM CDT Inhaled Oxygen Concentration - - Weight 69.9 kg (154 lb) 10/11/2022 11:13 AM CDT Height 167.6 cm (5' 6) 10/11/2022 11:13 AM CDT Body Mass Index 24.86 10/11/2022 11:13 AM CDT Plan of Treatment Health Maintenance Due Date Last Done Comments ADVANCE CARE PLANNING 2001 ANNUAL REVIEW OF HM ORDERS 2001 LIPID 2001 MENINGITIS B IMMUNIZATION (1 of 2 - Standard) 2017 YEARLY PREVENTIVE VISIT 01/06/2021 01/07/2020 COVID-19 Vaccine ( season) 2024 03/25/2021, 08/26/2020, 07/29/2020 PHQ-2 (once per calendar year) 2024 DTAP/TDAP/TD IMMUNIZATION (7 - Td or Tdap) 06/24/2024 06/24/2014, 06/24/2014, 05/05/2008, Additional history exists CHLAMYDIA SCREENING 01/31/2025 02/01/2024, 06/20/2023, 07/22/2022, Additional history exists PAP 06/20/2026 06/20/2023 ZOSTER IMMUNIZATION (1 of 2) 11/22/2051 HEPATITIS B IMMUNIZATION Completed 003, 01/01/2003, 10/03/2002 HPV IMMUNIZATION Completed 04/07/2013, 05/23/2012 MENINGITIS IMMUNIZATION Completed 01/19/2018, 06/24 Pneumococcal Vaccine: Pediatrics (0 to 5 Years) and At-Risk Patients (6 to 49 Years) Aged Out 03/25/2021 No longer eligible based on patient's age to complete this topic HIV SCREENING Completed 06/20/2023 HEPATITIS C SCREENING Completed 02/01/2024, 024 INFLUENZA VACCINE Completed 02/01/2024, , 01/21/2022, Additional history exists Insurance [employer] Care Teams Cashier Self Service Gasoline Relationship Specialty [place] [id number] [address] [address] PCP - General 01/30/04 Lyndsey Raines MD [address] [place] [address] [phone] Plastic Surgery 04/20/22 Mildred White Specialty Cloth Mercerizer Back Tender 04/20/22 Jens Wharton [facility] [address] [place] [address] [phone] Sql Data Analyst Plastic Surgery 04/20/22
--- OUTSIDE RECORDS SUMMARY | 2024-09-22 17:48 | XMS_ITS | Encounter Summary ---
Author Organization [facility] Address [address] [place] [address] Care Team Providers Care Addiction Therapist Name Role Phone Kelsie Barba MD Primary Care Provider [phone] Paras Dunne MD Unavailable [phone] Lyndsey Raines MD Unavailable [phone] Mildrde White Unavailable Unavailable Jens Wharton [facility] Unavailable [phone] Paras Dunne MD Unavailable [phone] Lyndsey Raines MD Unavailable [phone] Encounter Details Date Type Department Care Team (Late st Contact Info) Description 04/20/2022 [facility] [address] [address] Mildred White Social History Tobacco Use Types Packs/Day Years Used Date Smoking Tobacco: Never Assessed Comments Unknown Sex and Gender Information Value Date Recorded Sex Assigned at Female 01/22/2020 9:50 PM CDT Legal Sex Female 4:24 AM ADDICTION COUNSELOR Gender Identity Transgender Male 01/22/2020 9:50 PM CDT Sexual Orientation other 01/22/2020 9: 50 PM CDT documented as of this encounter Plan of Treatment Not on file documented as of this encounter Visit Diagnoses Not on filedocumented in this encounter Care Teams Addiction Therapist Relationship Specialty [place] [address] [address] [address] PCP - General 01/30/04 Paras Dunne MD [address] [place] [address] [phone] Assigned PCP 03/27/20 04/22/22 Lyndsey Raines MD [address] [place] [address] [phone] Plastic Surgery 04/20/22 Mildred White Specialty Principal Java Developer 04/20/22 Jens Wharton, [facility] [address] [place] [address] [phone] Control System Manager Plastic Surgery 04/20/22 Paras Dunne MD [address] [place] [id number] Assigned PCP 07/02/22 05/31/23 Lyndsey Raines MD [address] [place] [address] [phone] Assigned Surgical Provider 10/22/22 documented as of this encounter
--- OUTSIDE RECORDS SUMMARY | 2024-09-22 17:48 | XMS_ITS | Encounter Summary ---
Author Organization [facility] Address [address] [place] [address] Care Team Providers Care Onion Farmer Name Role Phone Kelsie Barba MD Primary Care Provider [phone] Paras Dunne MD Unavailable [phone] Lyndsey Raines MD Unavailable [phone] Mildred White Unavailable Unavailable Jens Wharton [facility] Unavailable [phone] Paras Dunne MD Unavailable [phone] Lyndsey Raines MD Unavailable [phone] Encounter Details Date Type Department Care Team (Late st Contact Info) Description 03/28/2022 [facility] [address] [address] Mildred White Social History Tobacco Use Types Packs/Day Years Used Date Smoking Tobacco: Never Assessed Comments Unknown Sex and Gender Information Value Date Recorded Sex Assigned at Female 01/22/2020 9:50 PM CDT Legal Sex Female 4:24 AM ORDER ENTRY Gender Identity Transgender Male 01/22/2020 9:50 PM CDT Sexual Orientation other 01/22/2020 9: 50 PM CDT documented as of this encounter Plan of Treatment Not on file documented as of this encounter Visit Diagnoses Not on filedocumented in this encounter Care Teams Onion Farmer Relationship Specialty [place] [address] [address] [address] PCP - General 01/30/04 Paras Dunne MD [address] [place] [address] [phone] Assigned PCP 03/27/20 04/22/22 Lyndsey Raines MD [address] [place] [address] [phone] Plastic Surgery 04/20/22 Mildred White Specialty Foot Gatherer 04/20/22 Jens Wharton, [facility] [address] [place] [address] [phone] Dry Pan Feeder Plastic Surgery 04/20/22 Paras Dunne MD [address] [place] [id number] Assigned PCP 07/02/22 05/31/23 Lyndsey Raines MD [address] [place] [address] [phone] Assigned Surgical Provider 10/22/22 documented as of this encounter
--- OUTSIDE RECORDS SUMMARY | 2024-09-22 17:48 | XMS_ITS | Encounter Summary ---
Author Organization [facility] Address [address] [place] [address] Care Team Providers Care Cdl Company Driver Name Role Phone Kelsie Barba MD Primary Care Provider Lyndsey Raines MD Unavailable [phone] Mildred White Unavailable Unavailable Jens Wharton [facility] Unavailable [phone] Lyndsey Raines MD Unavailable [phone] Encounter Details Date Type Department Care Team (Late st Contact Info) Description 06/01/2023 [facility] Advice [facility] [address] [place] [address] Mildred White Social History Tobacco Use [...] PM CDT Legal Sex Female 4:24 AM LEVERMAN Gender Identity Transgender Male 01/22/2020 9:50 PM CDT Sexual Orientation other 01/22/2020 9: 50 PM CDT documented as of this encounter Plan of Treatment Not on file documented as of this encounter Visit Diagnoses Not on filedocumented in this encounter Care Teams Cdl Company Driver Relationship Specialty [place] [address] [address] [address] PCP - General 9/24/04 Lyndsey Raines MD [address] [facility] [address] [place], [place] [phone] Plastic Surgery 04/20/22 Mildred White Specialty Mounter Flutes And Piccolos 04/20/22 Jens Wharton [facility] [address] [place], [place] [phone] Sanitation Truck Cleaner Plastic Surgery 04/20/22 Lyndsey Raines MD [address] [facility] [address] [place], [place] [phone] Assigned Surgical Provider 10/22/22 documented as of this encounter
[2024-09-22] MEDS: ACETAMINOPHEN 325 MG TABLET 975 MG PO (18:27)
--- NOTE | 2024-09-22 19:10 | PC.NURSE ---
End of Shift: Patient pleasant and cooperative. Patient vitally stable on admission, lungs clear, BS WNL, IV SL and intact. Patient is independent in room. Patient rates throat pain 4/10, tylenol given once. Patient tolerating regular diet eating spaghetti for dinner. Mother is with patient in room.
[2024-09-22] MEDS: SODIUM CHLORIDE 0.9 % (FLUSH) 10 ML SYRINGE 5 ML IVF (22:33)
[2024-09-22] MEDS: IBUPROFEN 400 MG TABLET PO (23:16)
[2024-09-23 03:00] VITALS: BP 111/68; PULSE 87; RESP 18; TEMP 36.4; O2SAT 99
[2024-09-23] MEDS: AMPICILLIN/SULBACTAM 3 GM in 0.9 % SODIUM CHLORIDE Mini-bag 100 ML IVPB ×2 (04:17→10:01)
[2024-09-23 07:00] VITALS: BP 118/68; PULSE 72; PULSE 87; RESP 18; TEMP 36.7; O2SAT 99
--- NOTE | 2024-09-23 08:01 | P.DS_ITS ---
DS: Providers Provider Date Seen: 09/23/24 Date of admission: 09/22/24 17:46 Primary care physician: Ashley Ashraf MD Admitting Clinician: Annmarie Macias MD Attending Physician on discharge: Alla Glasgow MD Date of Discharge: 09/23/24 DS: Diagnosis Discharge Diagnosis (1) Acute tonsillitis: Status: Acute Problem details: - subjectively and objectively improved on hospital day one, ready for d/c home on oral antibiotics DS: Summary Hospital Course Hospital Course: Chandan was admitted to the hospital on 09/22 for symptomatic tonsillitis, failure of outpatient doxycycline for symptoms. Received IV Unasyn and Decadron, significant improvement overnight. Tolerating po intake without significant discomfort, no trismus, requesting discharge home on hospital day 1. Vital signs reassuring patient is appropriate for discharge home on oral Augmentin 09/23/2024. Status at Discharge Functional status at discharge: independent ambulation Overall status at discharge: patient is progressing back to baseline Time Spent with Patient Time attestation: Total time spent providing and/or coordinating discharge services: Time spent: Greater than 30 minutes Specific discharge activities: medication reconciliation, chart review, multidisciplinary team discussion Exam Narrative: Exam Narrative: GEN: Alert and oriented, nontoxic, speaking in full sentences, no hoarseness HEENT: No trismus, tonsils normal sized, no concerning exudate, normal ROM of neck, no concerning adenopathy. EOMIs bilaterally, no scleral icterus CV: RRR, No concerning murmurs R: LCTA bilaterally without concerning wheezing Ext: wwp, no concerning edema Skin: No concerning skin lesions or rashes on exposed skin Neuro: Nonfocal Psych: Appropriate Const: Vital Signs, click to edit/add: Vital Signs - 24 hr 09/22/24 13:32 09/22/24 15:15 09/22/24 15:30 Temperature 98.8 F Pulse Rate 95 72 Pulse Rate [Pulse Oximeter] 96 Respiratory Rate 20 Blood Pressure Blood Pressure [Ri ght Arm] Blood Pressure [Ri ght Upper Arm] 126/80 Pulse Oximetry 96 100 99 Oxygen Delivery Me thod Room Air 09/22/24 15:45 09/22/24 16:00 09/22/24 16:15 Temperature Pulse Rate 88 74 80 Pulse Rate [Pulse Oximeter] Respiratory Rate Blood Pressure Blood Pressure [Ri ght Arm] Blood Pressure [Ri ght Upper Arm] Pulse Oximetry 100 100 100 Oxygen Delivery Me thod 09/22/24 16:30 09/22/24 16:33 09/22/24 16:45 Temperature Pulse Rate 70 68 75 Pulse Rate [Pulse Oximeter] Respiratory Rate 16 Blood Pressure 110/67 Blood Pressure [Ri ght Arm] Blood Pressure [Ri ght Upper Arm] Pulse Oximetry 98 98 99 Oxygen Delivery Me thod 09/22/24 17:00 09/22/24 17:02 09/22/24 17:15 Temperature Pulse Rate 75 78 80 Pulse Rate [Pulse Oximeter] Respiratory Rate 16 Blood Pressure 117/75 Blood Pressure [Ri ght Arm] Blood Pressure [Ri ght Upper Arm] Pulse Oximetry 100 100 100 Oxygen Delivery Me thod Room Air 09/22/24 17:30 09/22/24 17:32 09/22/24 18:02 Temperature 98.6 F Pulse Rate 82 77 Pulse Rate [Pulse Oximeter] 80 Respiratory Rate 16 14 Blood Pressure 106/56 L Blood Pressure [Ri ght Arm] 114/72 Blood Pressure [Ri ght Upper Arm] Pulse Oximetry 98 99 80 L Oxygen Delivery Me thod Room Air Room Air 09/22/24 18:29 09/22/24 19:00 09/22/24 22:16 Temperature 98.7 F 98.2 F Pulse Rate Pulse Rate [Pulse Oximeter] 82 79 Respiratory Rate 14 18 18 Blood Pressure Blood Pressure [Ri ght Arm] 118/57 L 109/71 Blood Pressure [Ri ght Upper Arm] Pulse Oximetry 98 97 95 Oxygen Delivery Me thod Room Air Room Air Room Air 09/23/24 03:00 09/23/24 07:00 09/23/24 07:00 Temperature 97.6 F 98.1 F Pulse Rate Pulse Rate [Pulse Oximeter] 87 87 72 Respiratory Rate 18 18 18 Blood Pressure Blood Pressure [Ri ght Arm] 111/68 118/68 Blood Pressure [Ri ght Upper Arm] Pulse Oximetry 99 99 Oxygen Delivery Me thod Room Air Room Air DS: Data Data Completed and Pending Labs on day of discharge: Labs from last 24 hours 09/22/24 09/22/24 14:50 13:30 WBC 17.00 H RBC 4.61 Hgb 14.5 Hct 44.2 MCV 96 MCH 32 MCHC 33 RDW Coeff of Reji 12.2 Plt Count 289 Neut % (Auto) 76.8 H Lymph % (Auto) 13.4 L [place] % (Auto) 8.1 Eos % (Auto) 0.4 Baso % (Auto) 0.2 Neut # (Auto) 13.10 H Lymph # (Auto) 2.30 [place] # (Auto) 1.40 H Eos # (Auto) 0.10 Baso # (Auto) 0.00 Abs Immat Gran (auto) 0.20 Imm/Tot Granulo (auto) 1.1 Sodium 141 Potassium 4.1 Chloride 106 Carbon Dioxide 31 Anion Gap 4 L BUN 12 Creatinine 0.7 Estimated Creat Clear 118.01 Estimated GFR 125 Glucose 84 Calcium 9.5 Total Bilirubin 1.0 AST 20 ALT 16 Alkaline Phosphatase 58 C-Reactive Protein 2.3 H Total Protein 7.5 Albumin 4.5 SARS-CoV-2 (PCR) Negative SARS-CoV-2 Monoscreen Negative Influenza Type A (PCR) Negative PCR FLU A Influenza Type B (PCR) Negative PCR FLU B RSV (PCR) Negative PCR RSV Group A Strep DNA NOT DETECTED Preliminary micro results at discharge 09/22/24 14:50 Throat Culture - Preliminary Throat Culture in Progress Discharge Plan Discharge Disposition: Home, Self-Care Date of Admission: 09/22/24 17:46 Attending Provider on Discharge: Alla Glasgow Primary Care Provider: Ashley Ashraf Condition: Improved Anticipated Discharge Date/Time: 09/23/24 07:55 Discharge Medications: New amoxicillin-pot clavulanate 875-125 mg tablet 1 tab PO BID 7 Days Qty: 14 0RF Continued lisdexamfetamine [Vyvanse] 40 mg capsule 40 mg PO DAILY citalopram 40 mg tablet 40 mg PO QDAY bupropion HCl 150 mg tablet extended release 24 hr 150 mg PO DAILY Discharge Orders: Discharge Order (Routine); Ordered 09/23/24 Ordered By: Alla Glasgow Patient Education: Amoxicillin/Clavulanate Potassium (By mouth), Tonsillitis (DC) Additional Instructions: 1 more week of antibiotics - make sure you're on some type of PROBIOTIC while taking these. Keep an eye on symptoms - recurrent fevers and/or sore throat require another evaluation. Activity Level: Activity as Tolerated Discharge Diet: Regular Follow Up Appointments: Provider,Not a Local [Non-Staff] - Ashley Ashraf MD [Primary Care Provider] - (Please follow up as needed.) Forms: [employer] Info Instructions
[2024-09-23] MEDS: CITALOPRAM HYDROBROMIDE 20 MG TABLET 40 MG PO (08:36)
[2024-09-23] MEDS: buPROPion XL 150 MG TABLET PO (08:36)
[2024-09-23] MEDS: SODIUM CHLORIDE 0.9 % (FLUSH) 10 ML SYRINGE 5 ML IVF (08:37)
== END 2024-09-23 10:26 | disposition home or self-care (01) ==
LOC: ED 16:31 → MEDSURG 17:47
PROVIDERS: Admitting Provider Family Medicine; Emergency Provider Family Medicine; PCP Family Medicine; Visit Provider Family Medicine
DX: J03.90 Acute tonsillitis, unspecified (principal); D72.829 Elevated white blood cell count, unspecified; R59.0 Localized enlarged lymph nodes; F12.90 Cannabis use, unspecified, uncomplicated; F17.290 Nicotine dependence, other tobacco product, uncomplicated; F64.0 Transsexualism
CPT/HCPCS: 36415; 70491; 80053; 85025; 86140; 86308; 87070; 87631; 87651; 96361; 96365; 96375; 99284; 99285; A9270; G0378; J0295; J1100; J1885; J7030; Q9967